=== PATIENT | female | born 2000 | race African-American/Black ===

== ENCOUNTER 2018-04-28 12:40 | Emergency (ER) | payer BC ==
[~2018-04-28] VITALS: Ht 165.1 cm; Wt 63.0 kg
[2018-04-28 13:01] LABS: URINE BILIRUBIN NEGATIVE (Negative); URINE BLOOD NEGATIVE (Negative); URINE CLARITY CLEAR; URINE COLOR YELLOW; URINE GLUCOSE-RANDOM* NEGATIVE (Negative); URINE KETONES NEGATIVE (Negative); URINE NITRITE-REFLEX NEGATIVE (Negative); URINE PROTEIN (DIPSTICK) NEGATIVE (Negative); URINE SPECIFIC GRAVITY 1.015 (1.005-1.035); URINE UROBILINOGEN 0.2 E.U./dl (0.2-1.0)
[2018-04-28 13:06] LABS: URINE LEUKOCYTES-REFLEX 1+ (Negative)
[2018-04-28 13:09] LABS: CASTS None Seen /LPF (None Seen); CRYSTALS None Seen /LPF (None Seen); SQUAMOUS 0-3 Few /LPF (0-3); YEAST-REFLEX Present (None Seen)
[2018-04-28 13:10] LABS: BACTERIA-REFLEX 1-9 Few /HPF (None Seen); URINE RBC None Seen /HPF (0-2); URINE WBC-REFLEX 0-5 Rare /HPF (0-5)
== END 2018-04-28 14:33 | disposition home or self-care (01) ==
LOC: ER 12:40
PROVIDERS: Nurse Practitioner Family
DX: B37.3 Candidiasis of vulva and vagina (principal)

== ENCOUNTER 2019-05-12 16:27 | Emergency (ER) | payer BC ==
[~2019-05-12] VITALS: Ht 165.1 cm; Wt 68.0 kg
[2019-05-12 17:08] LABS: URINE BILIRUBIN NEGATIVE (Negative); URINE BLOOD NEGATIVE (Negative); URINE CLARITY CLEAR; URINE COLOR YELLOW; URINE GLUCOSE-RANDOM* NEGATIVE (Negative); URINE KETONES NEGATIVE (Negative); URINE NITRITE-REFLEX NEGATIVE (Negative); URINE PROTEIN (DIPSTICK) NEGATIVE (Negative); URINE SPECIFIC GRAVITY 1.015 (1.005-1.035)
[2019-05-12 17:09] LABS: URINE LEUKOCYTES-REFLEX 1+ (Negative)
[2019-05-12 17:22] LABS: CASTS None Seen /LPF (None Seen); SQUAMOUS 0-3 Few /LPF (0-3)
[2019-05-12 17:23] LABS: BACTERIA-REFLEX None Seen /HPF (None Seen); CRYSTALS None Seen /LPF (None Seen); URINE RBC 0-2 Rare /HPF (0-2); URINE WBC-REFLEX >25 Many /HPF (0-5)
[2019-05-12] MEDS ORDERED: TRAMADOL 50 MG50 MG PO (18:18)
[2019-05-12] MEDS ORDERED: AUGMENTIN 875-1 EACH PO (18:18)
[2019-05-12] MEDS ORDERED: NAPROSYN500 MG PO (18:18)
[2019-05-12 18:45] LABS: ABSOLUTE NEUTROPHILS 4.5 thou/uL (1.4-8.2); BASOPHILS 0.8 % (0.0-2.0); HEMATOCRIT 40.3 % (37.0-47.0); HEMOGLOBIN 13.3 gm/dL (12.0-15.0); LYMPHOCYTES 29.8 % (24.0-44.0); MCH 27.1 pg (26.0-34.0); MONOCYTES 7.2 % (1.0-8.0); PLATELET COUNT 300 thou/uL (150-400); POLYS 61.2 % (36.0-66.0); RBC 4.92 mil/uL (4.20-5.00); RDW 14.5 % (10.5-14.5); WBC 7.3 thou/uL (4.0-11.0)
[2019-05-12 18:53] LABS: CALCIUM 9.8 mg/dL (8.5-10.1); CREATININE 0.9 mg/dL (0.6-1.0); POTASSIUM 3.7 mmol/L (3.5-5.1)
[2019-05-12 18:59] LABS: ALBUMIN 3.8 g/dL (3.4-5.0); TOTAL BILIRUBIN 0.3 mg/dL (<0.1-1.0); TOTAL PROTEIN 8.9 g/dL (6.4-8.2)
[2019-05-12 19:33] VITALS: BP 102/71
== END 2019-05-12 19:39 | disposition home or self-care (01) ==
LOC: ER 16:27
PROVIDERS: Emergency Medicine
DX: N12 Tubulo-interstitial nephritis, not specified as acute or chronic (principal)

== ENCOUNTER 2020-07-03 11:49 | Emergency (ER) | payer BC ==
[~2020-07-03] VITALS: Ht 165.1 cm; Wt 65.8 kg
[~2020-07-03 11:49] MED LIST: AUGMENTIN 875-1 EACH PO; NAPROSYN500 MG PO; TRAMADOL 50 MG50 MG PO
[2020-07-03 12:43] LABS: URINE BILIRUBIN NEGATIVE (Negative); URINE BLOOD NEGATIVE (Negative); URINE CLARITY CLEAR; URINE COLOR YELLOW; URINE GLUCOSE-RANDOM* NEGATIVE (Negative); URINE KETONES NEGATIVE (Negative); URINE NITRITE-REFLEX NEGATIVE (Negative); URINE PROTEIN (DIPSTICK) NEGATIVE (Negative); URINE SPECIFIC GRAVITY >= 1.030 (1.005-1.035)
[2020-07-03 12:47] LABS: URINE LEUKOCYTES-REFLEX 1+ (Negative)
[2020-07-03 13:05] LABS: BACTERIA-REFLEX 1-9 Few /HPF (None Seen); CASTS None Seen /LPF (None Seen); CRYSTALS None Seen /LPF (None Seen); SQUAMOUS 4-10 Moderate /LPF (0-3); URINE RBC None Seen /HPF (0-2); URINE WBC-REFLEX 6-15 Few /HPF (0-5)
[2020-07-03] MEDS ORDERED: METRONIDAZOLE500 M4 PO (14:17)
[2020-07-03 14:28] VITALS: BP 121/68
== END 2020-07-03 14:28 | disposition home or self-care (01) ==
LOC: ER 11:49
PROVIDERS: Emergency Medicine
DX: A59.01 Trichomonal vulvovaginitis (principal)